=== PATIENT | female | born 1965 | race Caucasian/White ===

== ENCOUNTER 2020-12-03 10:59 | Outpatient (CLI) | payer SELFPAY ==
--- NOTE | 2020-12-03 11:05 | US_ITS ---
WS: [id number] TRANSABDOMINAL PELVIC AND TRANSVAGINAL PELVIC ULTRASOUND HISTORY: PELVIC PERINEAL PAIN/ LLQ PAIN/POSTMENOPAUSAL BLEEDING COMPARISON: None available. Uterus: 7.5 cm x 4.0 cm x 4.3 cm. Mildly retroverted uterus. Evaluation is limited due to position of the uterus. Does appear to be of fibroid along the posterior uterus measuring 2.3 x 2.5 x 2.2 cm. Endometrium: 1.7 cm. Mildly enlarged endometrium. Endometrium is incompletely visualized but does elton ear prominent for postmenopausal female. Neither ovary is identified. No adnexal masses or fluid. US/US pelvic with transvaginal IMPRESSION: 1. Technically difficult evaluation of the uterus and adnexa due to position o f the uterus. 2. Suspect fibroid with maximum diameter of 2.5 cm on the posterior uterus. 3. Mildly enlarged endometrium at 1.7 cm. Recommend hysteroscopy. Differential includes endometrial neoplasm or hyperplasia.
== END 2020-12-03 11:00 | disposition home or self-care (01) ==
LOC: US 11:01
PROVIDERS: PCP Family Medicine; Visit Provider Nurse Practitioner Family
DX: R10.2 Pelvic and perineal pain (principal); R10.32 Left lower quadrant pain; N95.0 Postmenopausal bleeding
CPT/HCPCS: 76830; 76856

== ENCOUNTER → 2021-06-26 08:28 | Outpatient (BNVA) | payer OTHER, SELFPAY | PROVIDERS: PCP Family Medicine; Visit Provider Obstetrics & Gynecology | DX: N95.0 Postmenopausal bleeding (principal); Z20.822 Contact with and (suspected) exposure to COVID-19 | CPT/HCPCS: 87635 ==

== ENCOUNTER 2021-07-01 10:11 | Day surgery (SDC) | payer SELFPAY ==
--- NOTE | 2021-06-29 12:10 | ANES.PREANE2 ---
Pre-Anesthetic Assessment Pre-Anesthetic Assessment: Height/Weight: Height 1.63 m Weight 96.16 kg Proposed Procedure: Operation Date: 07/01/21 11:45 Proposed Procedures p Hysteroscopy w/ Myosure 93139 N95.0(Not Applicable) - Baudilio Conti MD s Dilation And Curettage (D&C)(Not Applicable) - Baudilio Conti MD Was Beta Matt taken within 24 hours: N/A Was Clonidine taken within 24 hours: N/A Social: Social History: No alcohol and No tobacco Exam: Pre-Anes Outpt Exam: alert, oriented x 3, clear to auscultation bilaterally and regular rate & rhythm Airway: Submandibular: WNL Cervical ROM: WNL MP: 1 History/ROS: No significant history except as noted and No significant complaints Anesthetic Plan: ASA status: 1 Anesthesia: Anesthesia Evaluation and General Risk of > 500 ml blood loss (7ml/kg in children): No PFSH Anesthesia PFSH: Family History Mother Hypertension Grandfather Stroke paternal Other Suicide Denies family history of Colon cancer Ovarian cancer Diabetes Clotting disorder Hyperlipidemia Breast cancer Bleeding disorder Uterine cancer Thyroid disease Social History (Updated 06/29/21 @ 08:37 by Susana Briones RN) Smoking and tobacco status: never smoked Alcohol intake: never Substance/Drug Use: never Data Anesthesia Cardiac Studies: No Data to Display
[2021-06-29 15:28] LABS: Basophils % 0.5 %; Eosinophils # 0.1 10^3/uL (0.0-0.8); Eosinophils % 2.3 %; Hematocrit 44.8 % (37.0-47.0); Hemoglobin 14.2 g/dL (11.5-15.3); Lymphocytes # 1.8 10^3/uL (0.8-4.8); Lymphocytes % 29.5 %; Mean Corpuscular HGB Conc 31.7 g/dL (30.0-36.0); Mean Corpuscular Hemoglobin 30.1 pg (28.0-34.0); Mean Corpuscular Volume 95.1 fl (81-99); Mean Platelet Volume 10.8 fL (7.4-10.4); Monocytes # 0.4 10^3/uL (0.2-0.9); Monocytes % 6.6 %; Neutrophils # 3.68 10^3/uL (1.8-7.7); Neutrophils % 60.9 %; Nucleated Red Blood Cells % 0 %; Platelet Count 328 10^3/cmm (130-400); Red Blood Count 4.71 10^6/uL (4.1-5.3); Red Cell Distribution Width 12.8 % (12.1-15.1)
[2021-06-29 15:58] LABS: Alanine Aminotransferase 14 U/L (0-33); Albumin Level 4.1 g/dL (3.5-5.2); Alkaline Phosphatase 70 IU/L (35-105); Anion Gap 13.5 (5-19); Aspartate Amino Transferase 16 U/L (0-32); Blood Urea Nitrogen 10 mg/dL (6-20); Calcium 8.6 mg/dL (8.5-10.5); Carbon Dioxide 29 mmol/L (22-29); Chloride 103 mmol/L (98-107); Globulin 2.9 g/dL (1.3-4.6); Glomerular Filtration Rate 103.4 mL/min (90-130); Glucose 62 mg/dL (65-115); Osmolality Calculated 291 mOsm/kg (285-295); Potassium 3.5 mmol/L (3.5-5.1); Sodium 142 mmol/L (136-145); Total Bilirubin 0.5 mg/dL (0.15-1.2)
[2021-06-29 22:53] LABS: Add Urine Microscopic? NO; Charge for UA Resulting for Rev
[2021-06-29 23:26] LABS: Bilirubin Urine Neg (Negative); Blood Urine Neg (Negative); Glucose Urine UA Norm (Normal); Ketones Urine Negative (Negative); Leukocyte Esterase Urine Negative (Negative); Nitrate Urine Negative (Negative); OR HCG Qualitative Urine Negative (Negative); Protein Urine Neg (Negative); Specific Gravity, Urine 1.005 (1.005-1.030); Urine Appearance Clear (CLEAR); Urine Color Yellow (Yellow); Urobilinogen Urine Norm (Negative); pH Urine 6 (5-7)
[2021-07-01] VITALS (7 sets, daily range): BP systolic 90–111; BP diastolic 46–80; PULSE 53–88; RESP 16–18; TEMP 36.1–36.9; O2SAT 95–100
--- NOTE | 2021-07-01 10:22 | W.PM.OPSUD ---
Surgery/Procedure H&P Update DATE OF PROCEDURE: July 01, 2021 DATE H&P PERFORMED: 06/29/21 H&P UPDATE INFORMATION: I have reviewed H&P completed within last 30 days, I have examined patient prior to procedure and No changes to prior documentation PREOP DIAGNOSIS: Postmenopausal bleeding PLANNED PROCEDURE: Operation Date: 07/01/21 11:45 Proposed Procedures p Hysteroscopy w/ Myosure 48509 N95.0(Not Applicable) - Baudilio Conti MD s Dilation And Curettage (D&C)(Not Applicable) - Baudilio Conti MD
[2021-07-01] MEDS: sodium chloride 0.9% 500 ML IV (10:45)
--- NOTE | 2021-07-01 10:48 | ANES.PAUD2 ---
Pre-Anesthetic Update Pre-Anesthetic Assessment: Date of Surgery/Procedure: 07/01/21 Preop Diagnosis: Postmenopausal bleeding Proposed Procedure: Operation Date: 07/01/21 11:45 Proposed Procedures p Hysteroscopy w/ Myosure 12624 N95.0(Not Applicable) - Baudilio Conti MD s Dilation And Curettage (D&C)(Not Applicable) - Baudilio Conti MD Any changes to Pre-Anesthetic Assessment?: No Labs Last 48hrs: Laboratory Results - last 48 hr 06/29/21 06/29/21 06/29/21 11:00 11:00 11:11 WBC 6.0 RBC 4.71 Hgb 14.2 Hct 44.8 MCV 95.1 MCH 30.1 MCHC 31.7 RDW 12.8 Plt Count 328 MPV 10.8 H Neut % (Auto) 60.9 Lymph % (Auto) 29.5 [place] % (Auto) 6.6 Eos % (Auto) 2.3 Baso % (Auto) 0.5 Neut # (Auto) 3.68 Lymph # (Auto) 1.8 [place] # (Auto) 0.4 Eos # (Auto) 0.1 Baso # (Auto) 0.0 Nucleated RBC % (a uto) 0 Nucleated RBCs # 0.0 Sodium Potassium Chloride Carbon Dioxide Anion Gap BUN Creatinine GFR Calculation Glucose Calculated Osmolal ity Calcium Total Bilirubin AST ALT Alkaline Phosphata se Total Protein Albumin Globulin Urine Color Yellow Urine Appearance Clear Urine pH 6 Ur Specific Gravit y 1.005 Urine Protein Neg Urine Glucose (UA) Norm Urine Ketones Negative Urine Blood Neg Urine Nitrate Negative Urine Bilirubin Neg Urine Urobilinogen Norm Ur Leukocyte Carmen ase Negative Urine HCG, Qual Negative Blood Type Rho(D) Type Antibody Screen 06/29/21 06/29/21 11:11 11:11 WBC RBC Hgb Hct MCV MCH MCHC RDW Plt Count MPV Neut % (Auto) Lymph % (Auto) [place] % (Auto) Eos % (Auto) Baso % (Auto) Neut # (Auto) Lymph # (Auto) [place] # (Auto) Eos # (Auto) Baso # (Auto) Nucleated RBC % (a uto) Nucleated RBCs # Sodium 142 Potassium 3.5 Chloride 103 Carbon Dioxide 29 Anion Gap 13.5 BUN 10 Creatinine 0.6 GFR Calculation 103.4 Glucose 62 L Calculated Osmolal ity 291 Calcium 8.6 Total Bilirubin 0.5 AST 16 ALT 14 Alkaline Phosphata se 70 Total Protein 7.0 Albumin 4.1 Globulin 2.9 Urine Color Urine Appearance Urine pH Ur Specific Gravit y Urine Protein Urine Glucose (UA) Urine Ketones Urine Blood Urine Nitrate Urine Bilirubin Urine Urobilinogen Ur Leukocyte Carmen ase Urine HCG, Qual Blood Type O Positive Rho(D) Type Positive Antibody Screen Negative Exam: Pre-Anes Outpt Exam: alert, oriented x 3, clear to auscultation bilaterally and regular rate & rhythm Cardiac Studies: No Data to Display
[2021-07-01] MEDS: scopolamine 1.5 Patch 1 PATCH TRANSDERMA (11:07)
[2021-07-01] MEDS: midazolam 1 mg/mL INJ 2 mL 2 MG IVP (11:08)
[2021-07-01] MEDS: sodium chloride 0.9% 1,000 ML 30 ML IV (11:16)
--- NOTE | 2021-07-01 12:27 | P.OP_ITS ---
Operative Report Date of procedure: July 01, 2021 Pre-op Diagnosis: Postmenopausal bleeding Post-op diagnosis: same Post-op Findings: proliferative endometrium Procedure Done: hysteroscopy dilation and curettage via MyoSure Specimens removed/disposition: Endometrial curettings Pathology: Endometrial curettings Surgeon: Baudilio Conti MD Anesthesia: General Estimated blood loss (mL): 5 IV fluids (mL): 500 Urine output (mL): 50 Complications: None Findings: Proliferative endometrium Condition: stable Disposition: PACU Procedure: After informed consent, the risks included but were not limited to bleeding, infection, injury to internal organs. The patient was counseled on a possible laparotomy and on the potential need for hysterectomy. The patient e xpressed understanding of the risks involved, all questions were answered, and the patient consented to the procedure. The patient was taken to the operating room where general anesthesia was administered. She was placed in the dorsal lithotomy position and prepped and draped in sterile fashion. A time out procedure was performed. The patient was examined under anesthesia and found to have a normal uterus with normal adnexa. A sterile weight speculum was placed in the vagina. The uterus was then gently sounded to 7 cm, and the cervix was dilated. The 0 degrees MyoSure hysteroscope was advanced gently to the uterine fundus while visualizing the monitor. Survey of the uterine cavity showed: Proliferative endometrium, the fundus shows proliferative endometrium; left ostium was visualized, and lateral wall with proliferative endometrium; right ostium visualized, and lateral wall with proliferative endometrium; anterior and posterior rangel are with proliferative endometrium; endocervical canal is normal. The MyoSure device was advanced and the direct visualization the endometrium was morcellated without complication. At the end of morcellation the fluid deficit was 215 mL and was estimated at approximately 150 mL were on the floor. There was minimal bleeding noted and the tenaculum removed with goad hemostasis noted. The patient tolerated the procedure well. The patient was taken to the recovery area in stable condition.
[2021-07-01] MEDS: ibuprofen 800 mg tablet PO (13:04)
--- NOTE | 2021-07-01 15:47 | ANE.PACU2 ---
Inpatient post-anesthesia follow up: Airway intact: Yes Vital signs: Temperature 96.9 F Pulse Rate 54 Respiratory Rate 18 Blood Pressure 110/74 Pulse Oximetry 100 Oxygen Delivery Me thod Room Air Oxygen Flow Rate Fraction of Inspir ed Oxygen Hydration adequate: Yes Nausea and vomiting: No Pain level: 2 Mental status: Baseline
[2021-07-08 09:29] LABS: Miscellaneous Test See Scanned Lab Rpt
== END 2021-07-01 13:34 | disposition home or self-care (01) ==
PROVIDERS: PCP Family Medicine; Visit Provider Obstetrics & Gynecology
PROC: 0UDB8ZZ Extraction of Endometrium, Via Natural or Artificial Opening Endoscopic (ICD-10-PCS; CPT 58558; principal; 2021-07-01 11:35)
PROC: (CPT 58120; 2021-07-01 11:35)
DX: N95.0 Postmenopausal bleeding (principal); Z82.49 Family history of ischemic heart disease and other diseases of the circulatory system; Z82.3 Family history of stroke
CPT/HCPCS: 58558; 36415; 80053; 81003; 81025; 84703; 85025; 86850; 86900; 88305; 88360; 96374; J0690; J2250; J2405; J2704; J3010; J7030; J7040

== ENCOUNTER → 2021-07-03 08:02 | Outpatient (BNVA) | payer OTHER, SELFPAY | PROVIDERS: PCP Family Medicine; Visit Provider Surgery | DX: Z12.11 Encounter for screening for malignant neoplasm of colon (principal); Z20.822 Contact with and (suspected) exposure to COVID-19 | CPT/HCPCS: 87635 ==

== ENCOUNTER 2021-07-08 06:11 | Day surgery (SDC) | payer SELFPAY ==
[2021-07-03 14:31] VITALS: BMI 36.0
--- NOTE | 2021-07-08 06:38 | ANES.PREANE2 ---
Pre-Anesthetic Assessment Pre-Anesthetic Assessment: Height/Weight: Height 1.63 m Weight 95.254 kg Preop Diagnosis: Screening colonoscopy Proposed Procedure: Operation Date: 07/08/21 07:45 Proposed Procedures p Colonoscopy 97151 z12.11(Not Applicable) - Johnson Chahal MD Was Beta Matt taken within 24 hours: N/A Was Clonidine taken within 24 hours: N/A Social: Social History: No alcohol and No tobacco Airway: MP: 1 Dentition: Full History/ROS: Other Pulmonary: Pulmonary: None reported CV/HEM: CV/HEM: None reported : : None reported Hepatic: Hepatic: None reported GI: GI: None reported Metabolic: Metabolic: None reported Neuropsych: Neuropsych: None reported Anesthetic Plan: ASA status: 1 Anesthesia: MAC Risk of > 500 ml blood loss (7ml/kg in children): No PFSH Anesthesia PFSH: Family History Mother Hypertension Grandfather Stroke paternal Other Suicide Denies family history of Colon cancer Ovarian cancer Diabetes Clotting disorder Hyperlipidemia Breast cancer Bleeding disorder Uterine cancer Thyroid disease Social History (Updated 07/07/21 @ 09:22 by Susana Briones RN) Smoking and tobacco status: never smoked Alcohol intake: never Data Anesthesia Cardiac Studies: No Data to Display
[2021-07-08 06:50] VITALS: BP 149/87; PULSE 71; RESP 16; TEMP 36.4; O2SAT 100
--- NOTE | 2021-07-08 07:08 | W.PM.OPSFHP ---
Same Day Surgery H&P Indication for Procedure/HPI DATE OF PROCEDURE: July 08, 2021 CHIEF COMPLAINT/INDICATIONFOR SURGICAL PROCEDURE: Screening colonoscopy PREOP DIAGNOSIS: Screening colonoscopy PLANNED PROCEDRUE: Operation Date: 07/08/21 07:45 Proposed Procedures p Colonoscopy 25620 z12.11(Not Applicable) - Johnson Chahal MD 05/21/2021 This is a pleasant 55 years old female patient referred to my practice for screening colonoscopy as she never had one before. She reports that her stool caliber has been looking like [employer] like, and she has to strain more. She never had a colonoscopy before and she denies any weight loss or colon cancer or bleeding per rectum. She has the sense of incomplete evacuation when asked her more she is otherwise healthy 07/08/2021 interim history. Patient comes today for screening colonoscopy. ROS All systems have been reviewed negative except as per the above or per problem list Medications/Allergies* Allergies/Adverse Reactions Allergy/AdvReac Type Severity Reaction Status Date / Time No Known Allergies Allergy Verified 07/08/21 07:15 Pertinent History/Comorbid Conditions* Family History (Updated 05/05/21 @ 13:51 by Sylvie Brady LPN) Suicide Hypertension Mother Stroke Grandfather paternal Denies family history of Colon cancer Ovarian cancer Diabetes Clotting disorder Hyperlipidemia Breast cancer Bleeding disorder Uterine cancer Thyroid disease Social History Smoking and tobacco status: never smoked Alcohol intake: never Pertinent Exam Findings alert, oriented x 3, regular rate & rhythm and procedure specific exam findings Recommendations Surgery/Procedure today (Colonoscopy with possible biopsy) Other Plans: Plan of care; After thorough history and physical examination and reviewing the chart, plan to perform screening colonoscopy. I discussed with the patient in details the risks,benefits,alternatives and indications.The risk of aspiration, bleeding, soft tissue injury, perforation of the colon and other potential concomitant complications were explained to the patient in details,also the potential need for Laproscoy/Laparotomy to repair any related complications including but not limited to colectomy and or Closotomy.The patient understood this well and did agree to proceed. Rationale was carefully and clearly discussed with the patient.Appropriate informed consent have been reviewed and signed All questions have been answered and all concerns have been addressed to patient's satisfaction. 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
[2021-07-08] MEDS: sodium chloride 0.9% 1,000 ML 30 ML IV (07:34)
[2021-07-08 07:58] VITALS: BP 100/62; PULSE 69; RESP 16; TEMP 36.1; O2SAT 98
[2021-07-08 08:12] VITALS: BP 110/70; PULSE 62; RESP 16; O2SAT 97
--- NOTE | 2021-07-08 14:29 | ANE.PACU2 ---
Inpatient post-anesthesia follow up: Airway intact: Yes Vital signs: Temperature 97 F Pulse Rate 62 Respiratory Rate 16 Blood Pressure 110/70 Pulse Oximetry 97 Oxygen Delivery Me thod Room Air Oxygen Flow Rate Fraction of Inspir ed Oxygen Hydration adequate: Yes Nausea and vomiting: No Pain level: 1 Mental status: Baseline
== END 2021-07-08 08:34 | disposition home or self-care (01) ==
PROVIDERS: PCP Family Medicine; Visit Provider Surgery
PROC: 0DJD8ZZ Inspection of Lower Intestinal Tract, Via Natural or Artificial Opening Endoscopic (ICD-10-PCS; CPT 45378; principal; 2021-07-08 07:45)
DX: Z12.11 Encounter for screening for malignant neoplasm of colon (principal); K57.30 Diverticulosis of large intestine without perforation or abscess without bleeding; I10 Essential (primary) hypertension
CPT/HCPCS: 45378; J2704; J7030